=== PATIENT | female | born 2000 | race Caucasian/White ===

== ENCOUNTER 2023-11-17 09:45 | Emergency (ER) | payer BC, OTHER ==
[2023-11-17 10:03] VITALS: TEMP 97.4; O2SAT 99
[2023-11-17 10:36] LABS: Group A Strep NOT DETECTED (NEGATIVE)
[2023-11-17] MEDS ORDERED: TYLENOL 325 MG ONE (10:36)
[2023-11-17] MEDS: TYLENOL 325 MG PO ONE (10:38)
[2023-11-17 10:50] LABS: INFLUENZA A NEGATIVE (NEGATIVE); INFLUENZA B NEGATIVE (NEGATIVE); RESPIRATORY SYNCTIAL VIRUS NEGATIVE (NEGATIVE); SARS-CoV-2 Xpert Express NEGATIVE (NEGATIVE)
--- NOTE | 2023-11-17 11:25 | ERPHSYRPT ---
- History of Present Illness Time Seen by Provider: 11/17/23 10:10 Exam Limitations: no limitations Patient Subjective Stated Complaint: pt here for a sore throat and runny nose today, no fever, she is 11 weeks Triage Nursing Assessment: pt alert, walked in, resp easy, skin w/d/p. clear runny nose, throat red and swollen Physician History: Patient is a 23-year-old female currently 11 weeks presents to our ED for evaluation of a sore throat. No fever no difficulty breathing. Patient had sore throat is worse when she swallows. However she is able to swallow and tolerate p.o. No chest pain or shortness of breath. No nausea vomiting diaphoresis. No fever. Patient does have a runny nose which she attributes to allergies. Patient denies any issues regarding her . No pelvic cramping vaginal bleeding. Patient otherwise feels well. She voices no other complaints or concerns at this time. Portions of this note were created with voice recognition technology. There may be grammatical, spelling, punctuation or sound alike errors Timing/Duration: today Severity: moderate Associated Symptoms: vomiting Allergies/Adverse Reactions: No Known Drug Allergies Allergy (Verified 11/17/23 09:52) Home Medications: Aspirin 81 gm Chew [Baby Aspirin 81 mg Chew] 1 ea DAILY 11/17/23 [History] Pnv No.95/Ferrous Fum/Folic AC [ Caplet] 1 each PO DAILY 11/17/23 [History] Hx Tetanus, Diphtheria Vaccination/Date Given: Yes Hx Influenza Vaccination/Date Given: No Hx Pneumococcal Vaccination/Date Given: No Immunizations Up to Date: Yes Travel Risk - International Travel Have you traveled outside of the country in past 3 weeks: No - Coronavirus Screening Are you exhibiting any of the following symptoms?: No Close contact with a COVID-19 positive Pt in past 14-21 Days: No - Vaccine Status Have you recieved a Covid-19 vaccination: No - Review of Systems Constitutional: No Symptoms, No Fever, No Chills Eyes: No Symptoms Ears, Nose, & Throat: No Symptoms Respiratory: No Symptoms, No Cough, No Dyspnea Cardiac: No Symptoms, No Chest Pain, No Edema, No Syncope Abdominal/Gastrointestinal: No Symptoms, No Abdominal Pain, No Nausea, No Vomiting, No Diarrhea Genitourinary Symptoms: No Symptoms, No Dysuria Musculoskeletal: No Symptoms, No Back Pain, No Neck Pain Skin: No Symptoms, No Rash Neurological: No Symptoms, No Dizziness, No Focal Weakness, No Sensory Changes Psychological: No Symptoms Endocrine: No Symptoms Hematologic/Lymphatic: No Symptoms Immunological/Allergic: No Symptoms All Other Systems: Reviewed and Negative - Past Medical History Pertinent Past Medical History: No - Past Surgical History Past Surgical History: Yes Female Surgical History: Dilation & Curettage Other Surgical History: TONSILS/ADENOIDS - Female History Hx Last Menstrual Period: aug 2023 Hx Now: Yes Gestational Age: 9 - Social History Smoking Status: Former smoker Exposure to second hand smoke: No Drug Use: none Patient Lives Alone: No - Nursing Vital Signs Nursing Vital Signs: Initial Vital Signs Temperature 97.4 F 11/17/23 10:01 Pulse Rate 95 H 11/17/23 10:01 Respiratory Rate 18 11/17/23 10:01 Blood Pressure 124/72 11/17/23 10:01 O2 Sat by Pulse Oximetry 99 11/17/23 10:01 Pain Scale Pain Intensity 5 - Physical Exam General Appearance: no apparent distress, alert Eye Exam: PERRL/EOMI, eyes nml inspection Ears, Nose, Throat Exam: normal ENT inspection, TMs normal, pharynx normal, moist mucous membranes Neck Exam: normal inspection, non-tender, supple, full range of motion Respiratory Exam: normal breath sounds, lungs clear, airway intact, No respiratory distress Cardiovascular Exam: regular rate/rhythm, normal heart sounds, normal peripheral pulses Gastrointestinal/Abdomen Exam: soft, normal bowel sounds, other (Gravid abdomen), No tenderness, No mass Back Exam: normal inspection, normal range of motion, No CVA tenderness, No vertebral tenderness Extremity Exam: normal inspection, normal range of motion, pelvis stable Neurologic Exam: alert, oriented x 3, cooperative, normal mood/affect, sensation nml, No motor deficits Skin Exam: normal color, warm, dry, No rash Lymphatic Exam: No adenopathy SpO2 Interpretation: normal SpO2: 99 O2 Delivery: Room Air - Course Nursing assessment & vital signs reviewed: Yes Ordered Tests: Medication Summary Discontinued Medications Generic Name Dose Route Start Last Admin Trade Name Freq PRN Reason Stop Dose Admin Acetaminophen 975 mg 11/17/23 10:06 11/17/23 10:38 Acetaminophen 325 Mg Tablet PO 11/17/23 10:07 975 mg STAT ONE Administration Acetaminophen Confirm 11/17/23 10:36 Acetaminophen 325 Mg Tablet Administered 11/17/23 10:37 Dose 975 mg .ROUTE .STK-MED ONE Lab/Rad Data: Laboratory Results 11/17/23 Range/Units 10:00 Influenza Type A Ag NEGATIVE (NEGATIVE) Influenza Type B Ag NEGATIVE (NEGATIVE) RSV (PCR) NEGATIVE (NEGATIVE) SARS-CoV-2 (PCR) NEGATIVE (NEGATIVE) Group A Strep Antibody NOT DETECTED (NEGATIVE) - Progress Progress: improved Progress Note: 23-year-old female presents to the emergency department for evaluation of a sore throat. RSV influenza strep and COVID are all negative. Patient given Tylenol for pain. Patient advised that she can have Tylenol [id number]. In light of patient's we are limited to what we can advise. We advised patient to call her [facility] physician for further recommendations. Patient is otherwise well. Patient conversant well-appearing no distress. Portions of this note were created with voice recognition technology. There may be grammatical, spelling, punctuation or sound alike errors Complexity problem addressed is moderate acute complicated No critical care time Complex of data reviewed and analyzed is moderate. Test ordered test reviewed. Results analyzed and correlated clinically with history and physical exam. Risk of complication and or risk of morbidity/mortality patient management is low Vital stable. Time spent to discharge patient is approximately 20 minutes. Plan of care established for shared decision making. No social determinants of health present impede follow-up. Portions of this note were created with voice recognition technology. There may be grammatical, spelling, punctuation or sound alike errors 11/17/23 11:29 11/17/23 11:31 Counseled pt/family regarding: lab results, diagnosis, need for follow-up - Departure Departure Disposition: Home Clinical Impression: Sore throat (viral) Condition: Stable Critical Care Time: No Referrals: DOCTOR,NO FAMILY [Primary Care Provider] - Follow up/PCP as directed ELMER MCCRARY DO [ACTIVE STAFF] - Follow up/PCP as directed Additional Instructions: Discharge/Care Plan IRLANDA FISHER was seen on 11/17/23 in the Emergency Room. The patient was counseled regarding Diagnosis,Lab results, Imaging studies, need for follow up and when to return to the Emergency Room. Prescriptions given: Discharge Note I have spoken with the patient and/or caregivers. I have explained the patient's condition, diagnosis and treatment plan based on the information available to me at this time. I have answered the patient's and/or caregiver's questions and addressed any concerns. The patient and/or caregivers have as good understanding of the patient's diagnosis, condition and treatment plan as can be expected at this point. The vital signs have been stable. The patient's condition is stable and appropriate for discharge from the emergency department. The patient will pursue further outpatient evaluation with the primary care physician or other designated or consulting physician as outlined in the discharge instructions. The patient and/or caregivers are agreeable to this plan of care and follow-up instructions have been explained in detail. The patient and/or caregivers have received these instruction. The patient/and or caregivers are aware that any significant change in condition or worsening of symptoms should prompt an immediate return to this or the closest emergency department or call 911.
[2023-11-17 11:42] VITALS: BP 119/71; PULSE 76; RESP 16
== END 2023-11-17 11:43 | disposition home or self-care (01) ==
LOC: ED 09:45
DX: J02.9 Acute pharyngitis, unspecified (principal); Z33.1 Pregnant state, incidental; Z28.310 Unvaccinated for COVID-19
CPT/HCPCS: 0241U; 87651; 99282; A9270-GY

== ENCOUNTER 2024-12-29 15:41 | Emergency (ER) | payer OTHER ==
[2024-12-29 16:17] VITALS: RESP 18; TEMP 98
[2024-12-29 16:33] VITALS: O2SAT 97
[2024-12-29] MEDS ORDERED: Sodium Chloride 0.9% 1000 ML 1,000 ML ONE (16:33)
[2024-12-29 16:36] LABS: Absolute Neutrophil Ct (ANC) 4.85 x10^3/uL (1.56-6.13); BASOPHIL % 0.6 % (0.1-1.2); Basophil (Absolute #) 0.04 x10^3/uL (0.01-0.08); Eosinophil % 0.6 % (0.7-5.8); Eosinophil (Absolute #) 0.04 x10^3/uL (0.04-0.36); Hematocrit 39.5 % (34.1-44.9); Hemoglobin 13.1 g/dL (11.2-15.7); IMMATURE GRAN # 0.02 x10^3u/L (0.001-0.031); IMMATURE GRAN % 0.3 % (0.001-0.429); Lymphocyte (Absolute #) 1.53 x10^3/uL (1.18-3.74); Lymphocytes % 22.4 % (19.3-51.7); Mean Cell Volume 84.4 fL (79.4-94.8); Mean Corpuscular Hgb Concent. 33.2 g/dL (32.2-35.5); Mean Platelet Volume 9.6 fL (9.4-12.3); Monocyte (Absolute #) 0.36 x10^3/uL (0.24-0.86); Monocytes % 5.3 % (4.7-12.5); Neutrophil % 70.8 % (34.0-71.1); Platelet Count 307 x10^3/uL (182-369); Red Blood Count 4.68 x10^6/uL (3.93-5.22); Red Cell Distribution Width 13.2 % (11.7-14.4); White Blood Count 6.8 x10^3/uL (3.98-10.04)
[2024-12-29] MEDS: Sodium Chloride 0.9% 1000 ML 1,000 ML IV SCH (16:36)
[2024-12-29 16:50] LABS: ANION GAP 17.8 MEQ/L (5-15); BILIRUBIN,TOTAL 1.1 mg/dL (0.2-1.3); Calcium 9.4 mg/dL (8.4-10.2); Creatinine 1 0.56 mg/dL (0.52-1.04); HCG SERUM TEST NEGATIVE (NEGATIVE); Potassium 3.8 mmol/L (3.5-5.1); Total Protein 7.7 g/dL (6.3-8.2)
--- NOTE | 2024-12-29 17:10 | ERPHSYRPT ---
- History of Present Illness Time Seen by Provider: 12/29/24 16:30 Historian: patient Exam Limitations: no limitations Patient Subjective Stated Complaint: pt was sent from clinic for a ct scan, pt co pain to center of abd that radiates to right side, some nausea, no fever. Triage Nursing Assessment: pt alert, walked in, resp easy, skin w/d/p. abd soft, tender to touch, no edema noted, is breast feeding Physician History: Patient is a 24-year-old female presents to our ED for evaluation of right lower quadrant pain that started last night. Patient went to an outside clinic. Patient was advised to come to our ED for a CT scan to rule out appendicitis. Pain described as an ache that is localized to the right lower quadrant but occasionally shoots up towards her umbilicus. No fever. No trauma. No nausea vomiting diarrhea no rash. Patient breast-feeds her infant child. Patient voices no other complaints or concerns at this time. Portions of this note were created with voice recognition technology. There may be grammatical, spelling, punctuation or sound alike errors Timing/Duration: yesterday Activities at Onset: none Quality: aching Abdominal Pain Onset Location: RLQ Pain Radiation: periumbilical Severity of Pain-Max: moderate Severity of Pain-Current: mild Modifying Factors: Improves With: palpation Associated Symptoms: denies symptoms Previous symptoms: no prior history Allergies/Adverse Reactions: No Known Drug Allergies Allergy (Verified 12/29/24 16:09) Home Medications: Pnv No.95/Ferrous Fum/Folic AC [ Caplet] 1 each PO DAILY 11/17/23 [History] Hx Tetanus, Diphtheria Vaccination/Date Given: No Hx Influenza Vaccination/Date Given: Yes Hx Pneumococcal Vaccination/Date Given: No Immunizations Up to Date: Yes Travel Risk - International Travel Have you traveled outside of the country in past 3 weeks: No - Emerging Infectious Disease Are you exhibiting symptoms associated with any current EIDs: Yes Symptoms: Abdominal Pain - Review of Systems Constitutional: No Symptoms, No Fever, No Chills Eyes: No Symptoms Ears, Nose, & Throat: No Symptoms Respiratory: No Symptoms, No Cough, No Dyspnea Cardiac: No Symptoms, No Chest Pain, No Edema, No Syncope Abdominal/Gastrointestinal: No Symptoms, No Abdominal Pain, No Nausea, No Vomiting, No Diarrhea Genitourinary Symptoms: No Symptoms, No Dysuria Musculoskeletal: No Symptoms, No Back Pain, No Neck Pain Skin: No Symptoms, No Rash Neurological: No Symptoms, No Dizziness, No Focal Weakness, No Sensory Changes Psychological: No Symptoms Endocrine: No Symptoms Hematologic/Lymphatic: No Symptoms Immunological/Allergic: No Symptoms All Other Systems: Reviewed and Negative - Past Medical History Pertinent Past Medical History: No - Past Surgical History Past Surgical History: Yes Female Surgical History: Dilation & Curettage Other Surgical History: TONSILS/ADENOIDS - Female History Hx Last Menstrual Period: 16 months ago Hx Now: No - Social History Smoking Status: Former smoker Exposure to second hand smoke: No Drug Use: marijuana - Social Determinants of Health Will the patient participate in the screening: Declined to provide - Nursing Vital Signs Nursing Vital Signs: Initial Vital Signs Temperature 98.0 F 12/29/24 16:16 Pulse Rate 94 H 12/29/24 16:16 Respiratory Rate 18 12/29/24 16:16 Blood Pressure 116/74 12/29/24 16:16 O2 Sat by Pulse Oximetry 99 12/29/24 16:16 Pain Scale Pain Intensity 4 - Physical Exam General Appearance: no apparent distress, alert Eye Exam: PERRL/EOMI, eyes nml inspection Ears, Nose, Throat Exam: normal ENT inspection, pharynx normal, moist mucous membranes Neck Exam: normal inspection, full range of motion Respiratory Exam: normal breath sounds, lungs clear, No respiratory distress Cardiovascular Exam: regular rate/rhythm, normal heart sounds Gastrointestinal/Abdomen Exam: soft, tenderness (Right lower quadrant tenderness to palpation at McBurney's point), No mass Back Exam: normal inspection, normal range of motion, No CVA tenderness, No vertebral tenderness Extremity Exam: normal inspection, normal range of motion, pelvis stable Neurologic Exam: alert, oriented x 3, cooperative, normal mood/affect, sensation nml, No motor deficits Skin Exam: normal color, warm, dry Lymphatic Exam: No adenopathy SpO2 Interpretation: normal SpO2: 97 O2 Delivery: Room Air - Course Nursing assessment & vital signs reviewed: Yes - CT Exams Abdomen/Pelvis CT Interpretation: Tele-radiologist Report (Nonobstructing right punctate stone otherwise negative CT abdomen pelvis) Ordered Tests: Active Orders 24 hr Category Date Time Status IV Insertion STAT Care 12/29/24 16:20 Active NPO Diet 12/29/24 17:07 Active ABDOMEN AND PELVIS W/0 CONTRAS [CT] Stat Exams 12/29/24 16:20 Taken CBC W DIFF Stat Lab 12/29/24 16:15 Completed CMP Stat Lab 12/29/24 16:15 Completed CULTURE,URINE Stat Lab 12/29/24 18:08 Received HCG QUALITATIVE, SERUM Stat Lab 12/29/24 16:15 Completed UA W/RFX UR CULTURE Stat Lab 12/29/24 18:08 Completed Medication Summary Generic Name Dose Route Start Last Admin Trade Name Vannesa PRN Reason Stop Dose Admin Sodium Chloride 1,000 mls @ 100 mls/hr 12/29/24 16:30 12/29/24 16:36 Sodium Chloride 0.9% 1000 Ml IV 01/28/25 16:29 100 mls/hr .Q10H JESSA Administration Ceftriaxone Sodium 1 gm in 100 mls @ 200 mls/hr 12/29/24 18:38 Rocephin 1 Gm / 100 Ml Nacl IV 12/29/24 19:07 STAT ONE Lab/Rad Data: Laboratory Result Diagrams 12/29/24 16:15 12/29/24 16:15 Laboratory Results 12/29/24 12/29/24 12/29/24 Range/Units 18:08 16:15 16:15 WBC (3.98-10.04) x10^3/uL RBC (3.93-5.22) x10^6/uL Hgb (11.2-15.7) g/dL Hct (34.1-44.9) % MCV (79.4-94.8) fL MCH (25.6-32.2) pg MCHC (32.2-35.5) g/dL RDW (11.7-14.4) % Plt Count (182-369) x10^3/uL MPV (9.4-12.3) fL Gran % (34.0-71.1) % Immature Gran % (Auto) (0.001-0.429) % Nucleat RBC Rel Count (0.00-0.2) % Eos # (Auto) (0.04-0.36) x10^3/uL Immature Gran # (Auto) (0.001-0.031) x10^3u/L Absolute Lymphs (auto) (1.18-3.74) x10^3/uL Absolute Monos (auto) (0.24-0.86) x10^3/uL Absolute Nucleated RBC (0.00-0.012) x10^3u/L Lymphocytes % (19.3-51.7) % Monocytes % (4.7-12.5) % Eosinophils % (0.7-5.8) % Basophils % (0.1-1.2) % Absolute Granulocytes (1.56-6.13) x10^3/uL Basophils # (0.01-0.08) x10^3/uL Sodium 141 (135-145) mmol/L Potassium 3.8 (3.5-5.1) mmol/L Chloride 105 (98-107) mmol/L Carbon Dioxide 22 (22-30) mmol/L Anion Gap 17.8 H (5-15) MEQ/L BUN 7 (7-17) mg/dL Creatinine 0.56 (0.52-1.04) mg/dL Estimated GFR 129.0 ML/MIN Glucose 80 (74-106) mg/dL Calcium 9.4 (8.4-10.2) mg/dL Total Bilirubin 1.10 (0.2-1.3) mg/dL AST 26 (14-36) U/L ALT 15 (0-35) U/L Alkaline Phosphatase 103 (38-126) U/L Serum Total Protein 7.7 (6.3-8.2) g/dL Albumin 5.0 (3.5-5.0) g/dL Serum HCG, Qual NEGATIVE (NEGATIVE) Urine Color Yellow (Yellow) Urine Appearance Cloudy A (Clear) Urine pH 5.5 (4.6-8.0) Ur Specific [place] 1.020 (1.005-1.030) Urine Protein Negative (Negative) Urine Glucose (UA) Negative (Negative) mg/dL Urine Ketones 40 A (Negative) Urine Blood Trace (Negative) Urine Nitrite Negative (Negative) Urine Bilirubin Negative (Negative) Urine Urobilinogen 0.2 (0.2) mg/dL Ur Leukocyte Esterase Moderate A (Negative) U Hyaline Cast (Auto) NONE SEEN (0-2) /LPF Urine Microscopic RBC 3-5 (0-5) /HPF Urine Microscopic WBC 21-50 A (0-5) /HPF Ur Epithelial Cells Many A (None Seen) /HPF Urine Bacteria Few A (None Seen) /HPF Urine Culture Reflexed YES (NO) 12/29/24 Range/Units 16:15 WBC 6.8 (3.98-10.04) x10^3/uL RBC 4.68 (3.93-5.22) x10^6/uL Hgb 13.1 (11.2-15.7) g/dL Hct 39.5 (34.1-44.9) % MCV 84.4 (79.4-94.8) fL MCH 28.0 (25.6-32.2) pg MCHC 33.2 (32.2-35.5) g/dL RDW 13.2 (11.7-14.4) % Plt Count 307 (182-369) x10^3/uL MPV 9.6 (9.4-12.3) fL Gran % 70.8 (34.0-71.1) % Immature Gran % (Auto) 0.3 (0.001-0.429) % Nucleat RBC Rel Count 0.0 (0.00-0.2) % Eos # (Auto) 0.04 (0.04-0.36) x10^3/uL Immature Gran # (Auto) 0.02 (0.001-0.031) x10^3u/L Absolute Lymphs (auto) 1.53 (1.18-3.74) x10^3/uL Absolute Monos (auto) 0.36 (0.24-0.86) x10^3/uL Absolute Nucleated RBC 0.00 (0.00-0.012) x10^3u/L Lymphocytes % 22.4 (19.3-51.7) % Monocytes % 5.3 (4.7-12.5) % Eosinophils % 0.6 L (0.7-5.8) % Basophils % 0.6 (0.1-1.2) % Absolute Granulocytes 4.85 (1.56-6.13) x10^3/uL Basophils # 0.04 (0.01-0.08) x10^3/uL Sodium (135-145) mmol/L Potassium (3.5-5.1) mmol/L Chloride (98-107) mmol/L Carbon Dioxide (22-30) mmol/L Anion Gap (5-15) MEQ/L BUN (7-17) mg/dL Creatinine (0.52-1.04) mg/dL Estimated GFR ML/MIN Glucose (74-106) mg/dL Calcium (8.4-10.2) mg/dL Total Bilirubin (0.2-1.3) mg/dL AST (14-36) U/L ALT (0-35) U/L Alkaline Phosphatase (38-126) U/L Serum Total Protein (6.3-8.2) g/dL Albumin (3.5-5.0) g/dL Serum HCG, Qual (NEGATIVE) Urine Color (Yellow) Urine Appearance (Clear) Urine pH (4.6-8.0) Ur Specific [place] (1.005-1.030) Urine Protein (Negative) Urine Glucose (UA) (Negative) mg/dL Urine Ketones (Negative) Urine Blood (Negative) Urine Nitrite (Negative) Urine Bilirubin (Negative) Urine Urobilinogen (0.2) mg/dL Ur Leukocyte Esterase (Negative) U Hyaline Cast (Auto) (0-2) /LPF Urine Microscopic RBC (0-5) /HPF Urine Microscopic WBC (0-5) /HPF Ur Epithelial Cells (None Seen) /HPF Urine Bacteria (None Seen) /HPF Urine Culture Reflexed (NO) - Progress Progress: improved Progress Note: 24-year-old female presents to our ED as a referral from clinic for evaluation of right lower quadrant pain. Physical exam reveals tenderness to palpation of McBurney's point. CT abdomen pelvis negative for appendicitis. There is a nonobstructing renal calculus. However these are generally asymptomatic. UA shows a significant urinary tract infection. Patient is breast-feeding her child. Patient received a 1 g dose of Rocephin. A prescription for Keflex forwarded to patient's pharmacy. Both are safe in breath feeding mothers. Patient declined pain medication. Will discharge home. Patient agrees to follow-up with primary care doctor within 48 hours for reevaluation. Portions of this note were created with voice recognition technology. There may be grammatical, spelling, punctuation or sound alike errors Complexity of problem addressed is moderate acute complicated. No critical care time. Complexity of data reviewed and analyzed as moderate. Test ordered test reviewed results analyzed and correlated clinically with history and physical exam. Risk of complication and or risk of morbidity/mortality of patient management is moderate. A prescription for Keflex forwarded to patient's pharmacy. Vital stable. Time spent to discharge patient is approximately 15 minutes. Plan of care established for shared decision making. No social determinants of health present to impede follow-up. Portions of this note were created with voice recognition technology. There may be grammatical, spelling, punctuation or sound alike errors 12/29/24 18:42 Counseled pt/family regarding: lab results, diagnosis - Departure Departure Disposition: Home Clinical Impression: UTI (urinary tract infection), Right lower quadrant pain Condition: Stable Critical Care Time: No Referrals: DOCTOR,NO FAMILY [Primary Care Provider, UNKNOWN] - Follow up/PCP as directed Additional Instructions: Discharge/Care Plan IRLANDA FISHER was seen on 12/29/24 in the Emergency Room. The patient was counseled regarding Diagnosis,Lab results, Imaging studies, need for follow up and when to return to the Emergency Room. Prescriptions given: Discharge Note I have spoken with the patient and/or caregivers. I have explained the patient's condition, diagnosis and treatment plan based on the information available to me at this time. I have answered the patient's and/or caregiver's questions and addressed any concerns. The patient and/or caregivers have as good understanding of the patient's diagnosis, condition and treatment plan as can be expected at this point. The vital signs have been stable. The patient's condition is stable and appropriate for discharge from the emergency department. The patient will pursue further outpatient evaluation with the primary care physician or other designated or consulting physician as outlined in the discharge instructions. The patient and/or caregivers are agreeable to this plan of care and follow-up instructions have been explained in detail. The patient and/or caregivers have received these instruction. The patient/and or caregivers are aware that any significant change in condition or worsening of symptoms should prompt an immediate return to this or the closest emergency department or call 911. Prescriptions: Cephalexin Mh 500 mg [Keflex 500 mg] 500 mg PO TID 7 Days #21 cap
[2024-12-29 17:16] VITALS: PULSE 78
[2024-12-29 18:04] VITALS: BP 117/49
[2024-12-29 18:23] LABS: Appearance Cloudy (Clear); Bacteria Few /HPF (None Seen); Bilirubin Negative (Negative); Blood Trace (Negative); Epithelial Cells Many /HPF (None Seen); Glucose, Urine Negative (Negative); Hyaline Casts NONE SEEN /LPF (0-2); Ketones 40 (Negative); Leukocyte Esterase Moderate (Negative); Nitrite Negative (Negative); Ph 5.5 (4.6-8.0); Protein,Urine Dip Negative (Negative); Urobilinogen 0.2 mg/dL (0.2); WBC 21-50 /HPF (0-5)
[2024-12-29] MEDS ORDERED: ROCEPHIN 1 GM / 100 ML NaCl 1 GM/100 ML IVPB IV ONE (18:44)
[2024-12-29] MEDS: ROCEPHIN 1 GM / 100 ML NaCl 1 GM/100 ML IVPB IV ONE (18:45)
--- NOTE | 2024-12-30 08:35 | XRAY ---
Indication: Right abdominal pain. Multiple contiguous axial images obtained through the abdomen and pelvis without contrast. Comparison: None Lung bases clear. Heart not enlarged. Noncontrasted stomach and bowel loops appear nonobstructed with normal appendix. Right kidney demonstrates 2 nonobstructing punctate calculi. No free fluid/air. Remaining liver, gallbladder, pancreas, spleen, adrenal glands, kidneys, ureters, bladder, uterus, and aorta are unremarkable for noncontrast exam. Osseous structures intact. No ventral or inguinal hernias. Impression: Nonobstructing right renal micro-calculi. Remaining CT abdomen/pelvis without contrast exam is negative.
== END 2024-12-29 19:03 | disposition home or self-care (01) ==
LOC: ED 15:41
DX: N39.0 Urinary tract infection, site not specified (principal); R10.31 Right lower quadrant pain; Z79.899 Other long term (current) drug therapy
CPT/HCPCS: 36415; 74176; 80053; 81001; 84703; 85025; 87086; 96374; 99284; J0696